=== PATIENT | male | born 1965 | race Caucasian/White ===

== ENCOUNTER → 2016-11-28 | Outpatient (CLI) | payer OTHER ==
[2012-10-22 15:27] VITALS: BP 148/96
--- NOTE | 2016-11-28 09:32 | RAD ---
HISTORY: Disability, left knee pain Study: Three views left knee Comparison: None Findings: Normal alignment. No acute fracture or dislocation. The soft tissues are unremarkable. No effusion. IMPRESSION: 1. Negative left knee radiographs. Reported By:
--- NOTE | 2016-11-28 09:33 | RAD ---
HISTORY: Disability, right hip pain Study: Two views right hip Comparison: None Findings: Normal alignment. No acute fracture or dislocation. The soft tissues are unremarkable. There are mi ld degenerative changes of the bilateral hips. IMPRESSION: 1. Mild degenerative changes of the right hip without acute osseous abnormality. Reported By:
== END ==
LOC: RAD 08:46
PROVIDERS: ATTEND Internal Medicine
DX: Z02.71 Encounter for disability determination (principal)
CPT/HCPCS: 73501; 73564